=== PATIENT | male | born 1995 | race Caucasian/White ===

== ENCOUNTER 2020-07-16 19:17 | Emergency (ER) | payer OTHER ==
[~2020-07-16] VITALS: Ht 180.3 cm; Wt 77.1 kg
[2020-07-16] MEDS ORDERED: ADDERALL 20 MG20 MG (20:00)
[2020-07-16] MEDS ORDERED: NASAL MIST126 ML (20:00)
== END 2020-07-16 21:07 | disposition home or self-care (01) ==
LOC: ER 19:17
DX: S00.11XA Contusion of right eyelid and periocular area, initial encounter (principal); W22.8XXA Striking against or struck by other objects, initial encounter; Y92.89 Other specified places as the place of occurrence of the external cause; Y93.89 Activity, other specified; Y99.8 Other external cause status